=== PATIENT | female | born 2000 | race African-American/Black ===

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

== ENCOUNTER 2022-06-16 08:21 | Outpatient (CLI) | payer OTHER | END 2022-06-16 08:22 | disposition home or self-care (01) | LOC: CSHULT 08:21 | PROVIDERS: ATTEND Obstetrics & Gynecology | DX: N94.10 Unspecified dyspareunia (principal); R18.8 Other ascites | CPT/HCPCS: 76856 ==